=== PATIENT | male | born 1975 | race Caucasian/White ===

== ENCOUNTER 2016-05-10 01:59 | Emergency (ER) | payer OTHER, MEDICARE ==
[~2016-05-10] VITALS: Ht 170.2 cm; Wt 63.5 kg
[~2016-05-10 01:59] MED LIST: OPANA ER10 MG PO
--- NOTE | 2016-05-10 02:05 | ED GENERAL ADULT ---
History of Present Illness General Chief Complaint: ETOH/Drug Related Complaint Stated Complaint: ?DRUG Source: patient, EMS, police Exam Limitations: no limitations Vital Signs & Intake/Output Vital Signs & Intake/Output Vital Signs Date Time Temp Pulse Resp B/P Pulse O2 O2 Flow FiO2 Ox Delivery Rate 05/10 0235 122/80 05/10 0206 97.2 98 16 99 Room Air Allergies Coded Allergies: NO KNOWN ALLERGIES (06/16/15) Reconcile Medications OXYMORPHONE HCL (Opana ER) [address] TAB PO Q4P PRN PAIN Triage Nurses Notes Reviewed? yes HPI: Patient was pulled over in traffic stop [place] [address] Patient admits to drinking alcohol. Patient placed under arrest and brought into the emergency department for evaluation. Patient denies any trauma. Patient has no current complaints. Patient states he was drinking but denies any drug use. Patient does state that he has a checkered past has used drugs in the past without not say which ones he has used and states that he has not used any recently. Past History Travel History Traveled to [place] past 21 day No Medical History Any Pertinent Medical History? see below for history Neurological: NONE EENT: NONE Cardiovascular: NONE Respiratory: NONE Gastrointestinal: NONE Hepatic: NONE Renal: NONE Musculoskeletal: BACK PAIN Psychiatric: NONE Endocrine: NONE Blood Disorders: NONE Cancer(s): NONE Surgical History Surgical History: non-contributory Psychosocial History What is your primary language Lithuanian ETOH Use: occasional use Illicit Drug Use: POLYSUBSTANCE Family History Hx Contributory? No Review of Systems Review of Systems Constitutional: Reports: no symptoms. EENTM: Reports: no symptoms. Respiratory: Reports: no symptoms. Cardiovascular: Reports: no symptoms. GI: Reports: no symptoms. Genitourinary: Reports: no symptoms. Musculoskeletal: Reports: no symptoms. Skin: Reports: no symptoms. Neurological/Psychological: Reports: no symptoms. Hematologic/Endocrine: Reports: no symptoms. Immunologic/Allergic: Reports: no symptoms. All Other Systems: Reviewed and Negative Physical Exam Physical Exam General Appearance: well developed/nourished, alert, awake, intoxicated Head: atraumatic, normal appearance Eyes: Bilateral: PERRL, EOMI, other (SLUGGISH). Ears, Nose, Throat: normal pharynx, POOR DENTITION Neck: normal inspection, supple, full range of motion Respiratory: normal breath sounds, chest non-tender, no respiratory distress, lungs clear Cardiovascular: regular rate/rhythm, normal peripheral pulses Gastrointestinal: normal bowel sounds, soft, non-tender, no organomegaly Back: normal inspection, normal range of motion Extremities: normal inspection, normal capillary refill, normal range of motion, no edema Neurologic/Psych: no motor/sensory deficits, awake, alert, oriented x 3, normal gait, normal mood/affect Skin: intact, normal color, warm/dry Lymphatic: no anterior cervical kleber Core Measures ACS in differential dx? No CVA/TIA Diagnosis: No Severe Sepsis Present: No Septic Shock Present: No Progress Differential Diagnoses I considered the following diagnoses in my evaluation of the patient: [ INTOXICATION] Plan of Care: Orders Procedure Date/time Status URINE DRUGS OF ABUSE 05/10 204 Active Initial ED EKG: none Comments: Patient released by the police. Patient's breathalyzer was elevated. Patient called for a ride and he was discharged when his ride arrived. Departure Departure Disposition: HOME OR SELF CARE Condition: Stable Clinical Impression Primary Impression: Alcohol intoxication Referrals: PATIENT HAS NO PRIMARY CARE DR (PCP/Family) Additional Instructions: Return as needed or for any concerns. Departure Forms: Customer Survey General Discharge Information Critical Care Note Critical Care Note Critical Care Time: non-applicable
[2016-05-10 02:35] VITALS: BP 122/80
== END 2016-05-10 03:30 ==
LOC: ERH 01:59
DX: F10.129 Alcohol abuse with intoxication, unspecified (principal); F19.10 Other psychoactive substance abuse, uncomplicated
CPT/HCPCS: 80307